=== PATIENT | female | born 1990 | race African-American/Black ===

== ENCOUNTER 2016-12-21 13:47 | Emergency (ER) | payer OTHER ==
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
== END 2016-12-21 15:10 | disposition home or self-care (01) ==
LOC: CFTX 13:47
DX: S50.01XA Contusion of right elbow, initial encounter (principal); F17.210 Nicotine dependence, cigarettes, uncomplicated; W22.8XXA Striking against or struck by other objects, initial encounter; Y92.009 Unspecified place in unspecified non-institutional (private) residence as the place of occurrence of the external cause
CPT/HCPCS: 29105; 71101; 73070; 84703; 99283

== ENCOUNTER 2017-03-02 16:01 | Emergency (ER) | payer OTHER ==
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
== END 2017-03-02 19:13 | disposition home or self-care (01) ==
LOC: CFTX 16:01 → CED 16:01 → CFTX 17:37
DX: S00.83XA Contusion of other part of head, initial encounter (principal); S30.0XXA Contusion of lower back and pelvis, initial encounter; B00.1 Herpesviral vesicular dermatitis; F17.200 Nicotine dependence, unspecified, uncomplicated; X58.XXXA Exposure to other specified factors, initial encounter; Y92.9 Unspecified place or not applicable
CPT/HCPCS: 70140; 72100; 84703; 99283

== ENCOUNTER 2017-03-24 13:15 | Emergency (ER) | payer OTHER ==
[~2017-03-24] VITALS: Ht 157.5 cm; Wt 56.7 kg
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
== END 2017-03-24 18:37 | disposition home or self-care (01) ==
LOC: CED 13:15 → CFTX 13:15
DX: S13.4XXA Sprain of ligaments of cervical spine, initial encounter (principal); S40.011A Contusion of right shoulder, initial encounter; S20.219A Contusion of unspecified front wall of thorax, initial encounter; S00.33XA Contusion of nose, initial encounter; W51.XXXA Accidental striking against or bumped into by another person, initial encounter; Y92.009 Unspecified place in unspecified non-institutional (private) residence as the place of occurrence of the external cause
CPT/HCPCS: 70160; 70360; 71020; 72040; 72072; 73030; 84703; 99284

== ENCOUNTER 2017-04-20 18:16 | Emergency (ER) | payer OTHER ==
[~2017-04-20] VITALS: Ht 157.5 cm; Wt 56.7 kg
== END 2017-04-20 20:29 | disposition home or self-care (01) ==
LOC: CED 18:16 → CFTX 18:16
DX: L02.412 Cutaneous abscess of left axilla (principal); F17.200 Nicotine dependence, unspecified, uncomplicated
CPT/HCPCS: 10060; 99283